=== PATIENT | female | born 1970 | race Two or more races ===

== ENCOUNTER 2021-08-10 18:30 | Emergency (ER) | payer MEDICAID ==
[~2021-08-10] VITALS: Ht 162.6 cm; Wt 63.6 kg
[2021-08-10] MEDS ORDERED: LORazepam 1 MG TABLET PO ONE (20:00)
[2021-08-10 20:30] VITALS: BP 124/81
[2021-08-10] MEDS ORDERED: HYDR-4527 PO (20:44)
== END 2021-08-10 20:52 | disposition home or self-care (01) ==
LOC: EMS 18:30
DX: F41.9 Anxiety disorder, unspecified (principal)
CPT/HCPCS: 99283